=== PATIENT | female | born 1955 | race Caucasian/White ===

== ENCOUNTER → 2018-01-02 13:40 | Outpatient (CLI) | payer OTHER, SELFPAY ==
[2018-01-02 14:32] LABS: Basophils % 0.6 % (0.1-2.0); Eosinophils # 0.1 K/mm3 (0.0-0.4); Eosinophils % 0.9 % (0.1-12.0); Hematocrit 37.7 % (37.0-47.0); Lymphocytes # 2.1 K/mm3 (0.7-4.5); Lymphocytes % 35.1 K/mm3 (10-50); Mean Corpuscular HGB Conc 31.7 g/dL (31.8-35.4); Mean Corpuscular Hemoglobin 30.4 pg (27.0-31.2); Mean Corpuscular Volume 95.8 fl (81-99); Monocytes # 0.4 K/mm3 (0.1-1.0); Monocytes % 6.1 % (1.7-9.3); Neutrophils # 3.4 K/mm3 (1.8-7.8); Neutrophils % 57.4 % (37.0-80.0); Platelet Count 219 K/mm3 (142-424); Red Blood Count 3.94 M/mm3 (4.20-5.40); Red Cell Distribution Width 13.4 % (11.5-17.5); White Blood Count 5.8 K/mm3 (4.8-10.8)
[2018-01-02 14:59] LABS: Hemoglobin A1C 5.8 % (0.0-7.0)
[2018-01-02 15:07] LABS: Alanine Aminotransferase 23 U/L (12-78); Albumin Level 3.9 gm/dL (3.4-5.0); Albumin/Globulin Ratio 1.3 (1.1-1.8); Alkaline Phosphatase 58 U/L (46-116); Anion Gap 10.1 mEq/L (5-15); Aspartate Amino Transferase 20 U/L (15-37); Bilirubin,Total 0.4 mg/dL (0.2-1.0); Blood Urea Nitrogen 20 mg/dL (7-18); Carbon Dioxide 28 mmol/L (21.0-32.0); Chloride 106 mmol/L (98-107); Chol/HDL Ratio 3.2 (1-3.5); Cholesterol 249 mg/dL (140-200); Creatinine,Serum 1.09 mg/dL (0.55-1.02); Estimated Glomerular Filt Rate 51 ml/min (>60); GFR (African American) 62 ML/MIN (>60); Globulin 3.1 gm/dl (1.3-3.2); Glucose 119 mg/dL (74-106); HDL Cholesterol 78 mg/dL (29-89); LDL Cholesterol 128 mg/dL (0-130); Potassium 4.1 mmoL/L (3.5-5.1); Sodium 140 mmol/L (136-145); Thyroid Stimulating Hormone 3.04 uIU/ml (0.358-3.740); Triglycerides 214 mg/dL (30-200); VLDL Cholesterol 43 mg/dL (0-40)
[2018-01-02 15:18] LABS: C-Reactive Protein < 0.2 mg/L (0.0-0.9)
[2018-01-02 15:33] LABS: Erythrocyte Sedimentation Rate 14 mm/hr (0-30)
[2018-01-03 08:22] LABS: RA Latex Turbid. <10.0 IU/mL (0.0-13.9)
[2018-01-03 18:07] LABS: Vitamin D 25 Hydroxy 14.2 ng/mL (30.0-100.0)
[2018-01-05 14:25] LABS: Anti-Jo-1 <0.2 AI (0.0-0.9); Anti-Smith Antibody <0.2 AI (0.0-0.9); Antichromatin Antibodies <0.2 AI (0.0-0.9); Antiscleroderma-70 Antibodies <0.2 AI (0.0-0.9); RNP Antibodies <0.2 AI (0.0-0.9); Sjogren's Anti-SS-A <0.2 AI (0.0-0.9); Sjogren's Anti-SS-B <0.2 AI (0.0-0.9)
[2018-01-08 06:55] LABS: Anti-Centromere B Antibodies <0.2 AI (0.0-0.9); Anti-Cyclic Citrullinated Pept 7 units (0-19); Anti-DNA (DS) Ab Qn <1 IU/mL (0-9)
== END ==
PROVIDERS: Visit Provider Nurse Practitioner Family
DX: M25.50 Pain in unspecified joint (principal); I10 Essential (primary) hypertension; R53.83 Other fatigue
CPT/HCPCS: 36415; 80053; 80061; 82652; 83036; 84439; 84443; 85025; 85651; 86140; 86200; 86225; 86235; 86431

== ENCOUNTER → 2018-01-20 06:43 | Outpatient (CLI) | payer OTHER, SELFPAY ==
--- NOTE | 2018-01-20 06:44 | NM_ITS ---
History and Indications: Hypertension, hyperlipidemia, family history and abnormal EKG Procedure: Patient received a 0.4 mg of Lexiscan, resting heart rate was 68 bpm, resting blood pressure 124/71, with Lexiscan maximum heart rate achieved was 102 bpm, which is less than 85% of the maximum predicted heart rate and a blood pressure was 108/65. With Lexiscan patient complained of stomach discomfort Electrocardiogram: Resting electrocardiogram showed sinus rhythm nonspecific ST-T changes, with Lexiscan there is less than 1.[address] segment depression noted from the baseline EKG. The EKG portion of the Lexiscan Myoview is nondiagnostic. Cardiac stress and resting SPECT images: Cardiac stress and rest SPECT images were obtained using technetium 99 Myoview 30.2 mCi at stress and 10.7 mCi, gated SPECT further analysis of segmental wall motion and calculation of the ejection fraction also done. Cardiac stress and resting SPECT images show uniform myocardial activity without any segmental perfusion abnormality, computer derived ejection fraction is 56 percent with no obvious regional wall motion abnormality, right ventricle is normal size and contractility. Conclusion: 1. The EKG portion of the Lexiscan Myoview is nondiagnostic. 2. No obvious scintigraphic evidence of reversible ischemia seen, computer derived ejection fraction is 56% with no obvious regional wall motion abnormality, right ventricle is normal size and contractility. 3. Normal Lexiscan Myoview study.
--- NOTE | 2018-01-20 06:52 | CA_ITS ---
PROCEDURE: 2-D M-mode and color Doppler study INDICATIONS FOR THE TEST: Chest pain COPD Heart Murmur Tobacco Smoking Palpitations Fatigue Syncope Edema Hypertension+Diabetes Mellitus Rheumatic Fever SOB MITCHELL Obesity+Hyperlipidemia+ Family History HD Additional History CVA, HX OF SUBSTANCE ABUSE CLEAN FOR 3 YRS, ETOH ABUSE, + BUBBLE STUDY PATIENT INFORMATION HEIGHT:63 WEIGHT:192 GENDER: Female B/P:108/62 2-D/M-MODE INTERPRETATION: 2-D MEASUREMENTS OBSERVED VALUES IN CMS Right Ventricular Dimension (RVDd) 2.3 Interventricular Septum (Thickness)(IVsd) 1.5 Left Ventricular Internal Dimensions(LVIDd) 5.3 Left Ventricular Posterior Wall (Thickness)(LVPWd) 1.2 Aortic Root 3.3 Aortic Cusp Separation 2.2 Left Atrial Dimensions (LAD) 4.8 2D 1. Left atrium is mildly enlarged, left ventricle is normal size, mild concentric left ventricular hypertrophy, visually estimated ejection fraction 55% with no obvious regional wall motion abnormality. 2. The right atrium and right ventricle are mildly enlarged with normal contractility. 3. The aortic valve is minimally thickened and fibrosed. 4. The mitral and tricuspid valve are grossly normal. 5. The pulmonic valve is poorly visualized. 6. No significant pericardial effusion noted. DOPPLER INTERROGATION: Doppler interrogation of the aortic, mitral and tricuspid valvular presence of mild mitral and tricuspid regurgitation, tricuspid regurgitation jet velocity is insufficient for calculation of the right ventricular systolic pressure, grade 1 diastolic dysfunction seen with tissue Doppler evidence of raised left atrial pressure. There is flow across the intra-atrial septum is suggestive of atrial septal defect, agitated saline contrast study identifies right to left shunt. CONCLUSION: 1. Biatrial enlargement, normal left ventricular size, mild concentric left ventricular hypertrophy, visually estimated ejection fraction 55% with no obvious regional wall motion abnormality, grade 1 diastolic dysfunction seen with tissue Doppler evidence of raised left atrial pressure. 2. Mildly enlarged right ventricle with normal contractility. 3. There is flow across the intra-atrial septum, suggestive of possible atrial septal defect, agitated saline contrast study identifies right to left, a transesophageal echocardiogram is recommended for further evaluation.
--- NOTE | 2018-01-20 07:22 | HMH.ITSHM ---
ATORVASTATIN BISOPROLOL FLONASE LORATADINE LOSARTAN OXYBUTYNIN PANTOPRAZOLE VENLAFAXINE
[2018-01-20 10:58] LABS: Anion Gap 8.8 mEq/L (5-15); Blood Urea Nitrogen 17 mg/dL (7-18); Calcium 8.5 mg/dL (8.5-10.1); Carbon Dioxide 32 mmol/L (21.0-32.0); Chloride 102 mmol/L (98-107); Creatinine,Serum 1.09 mg/dL (0.55-1.02); Estimated Glomerular Filt Rate 51 ml/min (>60); GFR (African American) 62 ML/MIN (>60); Glucose 131 mg/dL (74-106); Potassium 3.8 mmoL/L (3.5-5.1); Sodium 139 mmol/L (136-145)
== END ==
PROVIDERS: PCP Emergency Medicine; Visit Provider Internal Medicine Cardiovascular Disease
DX: I10 Essential (primary) hypertension (principal); I69.30 Unspecified sequelae of cerebral infarction; Z87.898 Personal history of other specified conditions
CPT/HCPCS: 36415; 78452; 80048; 93017; 93306; A9502; J2785

== ENCOUNTER → 2018-01-20 10:13 | Outpatient (CLI) | payer OTHER, SELFPAY | PROVIDERS: PCP Emergency Medicine; Visit Provider Internal Medicine Cardiovascular Disease | DX: I10 Essential (primary) hypertension (principal); I69.30 Unspecified sequelae of cerebral infarction; Z87.898 Personal history of other specified conditions | CPT/HCPCS: 36415; 80048 ==

== ENCOUNTER → 2018-02-13 15:07 | Outpatient (CLI) | payer OTHER, SELFPAY | PROVIDERS: Visit Provider Nurse Practitioner Family | DX: R10.9 Unspecified abdominal pain (principal); M54.6 Pain in thoracic spine | CPT/HCPCS: 87086; 87088; 87186 ==

== ENCOUNTER → 2018-07-13 19:44 | Outpatient (CLI) | payer OTHER, SELFPAY | PROVIDERS: PCP Nurse Practitioner Family; Visit Provider Internal Medicine Cardiovascular Disease | DX: G47.33 Obstructive sleep apnea (adult) (pediatric) (principal); R40.0 Somnolence; R06.83 Snoring; I10 Essential (primary) hypertension | CPT/HCPCS: 95810 ==

== ENCOUNTER → 2018-09-11 14:23 | Outpatient (CLI) | payer OTHER, SELFPAY | PROVIDERS: PCP Nurse Practitioner Family; Visit Provider Surgery | DX: Z12.11 Encounter for screening for malignant neoplasm of colon (principal) | CPT/HCPCS: 93005 ==

== ENCOUNTER → 2018-09-22 08:34 | Outpatient (CLI) | payer OTHER, SELFPAY ==
--- NOTE | 2018-09-22 08:35 | MM_ITS ---
MM Dig screening mamm BI w/CAD CAD Screening COMPARISON: Digital outside mammograms with CAD 06/16/2017 INDICATION: There is a history of breast cancer patient maternal aunt diagnosed at age 72 TECHNIQUE: Standard CC and MLO images were obtained. R2 CAD reviewed. FINDINGS: The breasts are composed primarily of fat with minimal scattered fibroglandular densities in each breast. There is asymmetric glandular tissue upper outer quadrant right breast which is stable and unchanged from previous exam. There is a mole marker left breast. There is no suspicious lesion and there are no suspicious microcalcifications. IMPRESSION: Fatty type breast parenchyma with no suspicious lesion seen BI-RADS Category: 2 Benign Finding(s) RECOMMENDED FOLLOW-UP: 1YR - 1 YEAR FOLLOW-UP (A letter has been sent to the patient regarding results of the study.)
== END ==
PROVIDERS: PCP Nurse Practitioner Family; Visit Provider Nurse Practitioner Family
DX: Z12.31 Encounter for screening mammogram for malignant neoplasm of breast (principal)
CPT/HCPCS: 77067

== ENCOUNTER → 2019-04-23 12:07 | Outpatient (CLI) | payer OTHER, SELFPAY ==
--- NOTE | 2019-04-23 12:12 | XR_ITS ---
PROCEDURE: XR LUMBAR SPINE 2-3V CLINICAL INDICATION: pain Low back pain radiating down the right leg COMPARISON: No exams were available for comparison FINDINGS: There is normal alignment. No fracture or dislocation evident. Minimal endplate hypertrophic changes are present at L2-L3 and L4. The disc spaces are well preserved. Mild facet arthritic changes are present L5-S1 IMPRESSION: Mild degenerative changes as described above Dictated by: Keshawn Leavitt MD 04/23/2019 12:27 Electronically signed by Keshawn Leavitt MD in [place] 04/23/2019 12:27
== END ==
PROVIDERS: PCP Nurse Practitioner Family; Visit Provider Nurse Practitioner Family
DX: M54.31 Sciatica, right side (principal); M54.5 Low back pain
CPT/HCPCS: 72100

== ENCOUNTER → 2019-05-03 11:14 | Outpatient (POV) | payer OTHER, SELFPAY | PROVIDERS: Visit Provider Specialist | DX: M79.641 Pain in right hand (principal); R20.0 Anesthesia of skin; R20.2 Paresthesia of skin | CPT/HCPCS: 95886; 95908 ==

== ENCOUNTER → 2020-01-11 15:13 | Outpatient (CLI) | payer MEDICAID, SELFPAY ==
--- NOTE | 2020-01-11 15:13 | US_ITS ---
PROCEDURE: US TRANSVAGINAL CLINICAL INDICATION: US T/V-post menopausal bleeding Postmenopausal bleeding COMPARISON: No exams were available for comparison FINDINGS: UTERUS: 8cm x 5cmx 4cm with a combined endometrial thickness of 18.1mm LEFT OVARY: [id number] with a volume of 3ml. RIGHT OVARY: [id number] with a volume of 1.3ml. There is moderate thickening of the endometrium with some small cystic areas within the area of endometrial thickness.. In addition, there is a 3.8 x 2.9 by 4.2 cm area of decreased echogenicity with somewhat irregular margins within the body of the uterus posteriorly and inferiorly consistent with a fibroid. The ovaries have an unremarkable appearance. No cul-de-sac fluid evident. IMPRESSION: 1. Moderate to severe thickening of the endometrium. Endometrial carcinoma is a consideration. Differential includes hyperplasia of the endometrium or endometrial polyp. [employer] consult suggested. 2. Probable uterine fibroid at 4 cm Dictated b Keshawn Leavitt MD 01/12/2020 09:42 Keshawn Leavitt MD in [place] 01/12/2020 09:42
== END ==
PROVIDERS: PCP Nurse Practitioner Family; Visit Provider Obstetrics & Gynecology
DX: N95.0 Postmenopausal bleeding (principal)
CPT/HCPCS: 76830

== ENCOUNTER → 2020-01-13 11:02 | Outpatient (CLI) | payer MEDICAID, SELFPAY ==
[2020-01-13 11:35] LABS: Basophils # 0.1 K/mm3 (0-0.2); Basophils % 0.6 % (0.1-2.0); Eosinophils # 0.1 K/mm3 (0.0-0.4); Eosinophils % 1.1 % (0.1-12.0); Hematocrit 39.3 % (37.0-47.0); Hemoglobin 12.6 g/dL (12.2-16.2); Lymphocytes # 2.3 K/mm3 (0.7-4.5); Lymphocytes % 27.3 % (10-50); Mean Corpuscular HGB Conc 32.1 g/dL (31.8-35.4); Mean Corpuscular Hemoglobin 30.5 pg (27.0-31.2); Mean Corpuscular Volume 94.8 fl (81-99); Monocytes # 0.4 K/mm3 (0.1-1.0); Monocytes % 4.3 % (1.7-9.3); Neutrophils # 5.6 K/mm3 (1.8-7.8); Neutrophils % 66.6 % (37.0-80.0); Platelet Count 262 K/mm3 (142-424); Red Blood Count 4.14 M/mm3 (4.20-5.40); Red Cell Distribution Width 13.4 % (11.5-17.5); White Blood Count 8.4 K/mm3 (4.8-10.8)
[2020-01-13 12:04] LABS: Chloride 103 mmol/L (98-107); Potassium 4.9 mmoL/L (3.5-5.1); Sodium 141 mmol/L (136-145)
[2020-01-13 12:05] LABS: Alanine Aminotransferase 14 U/L (12-78); Albumin Level 4.5 g/dl (3.5-5.0); Alkaline Phosphatase 52 U/L (38-126); Aspartate Amino Transferase 26 U/L (14-36); Bilirubin,Indirect 0.4 mg/dL (0.0-0.9); Bilirubin,Total 0.4 mg/dl (0.2-1.3); Bilirubin,Unconjugated 0.4 mg/dL (0.0-1.1); Cholesterol 191 mg/dl (140-200); Total Protein,Serum 7.3 g/dl (6.3-8.2); Triglycerides 243 mg/dl (30-150); VLDL Cholesterol 49 mg/dL (0-40)
[2020-01-13 12:06] LABS: Chol/HDL Ratio 2.4 (1-3.5); HDL Cholesterol 79 mg/dl (40-60)
[2020-01-13 12:07] LABS: Alanine Aminotransferase 13 U/L (12-78); Albumin Level 4.6 g/dl (3.5-5.0); Albumin/Globulin Ratio 1.7 (1.1-1.8); Alkaline Phosphatase 53 U/L (38-126); Anion Gap 13.9 mEq/L (5-15); Aspartate Amino Transferase 26 U/L (14-36); Bilirubin,Total 0.5 mg/dl (0.2-1.3); Blood Urea Nitrogen 28 mg/dl (7-17); Carbon Dioxide 29 mmol/L (22.0-30.0); Estimated Glomerular Filt Rate 30 ml/min (>60); GFR (African American) 37 ML/MIN (>60); Globulin 2.7 g/dL (1.3-3.2); Total Protein,Serum 7.3 g/dl (6.3-8.2)
[2020-01-13 12:08] LABS: Calcium 9.9 mg/dl (8.4-10.2); Glucose 107 mg/dl (74-100)
[2020-01-13 12:17] LABS: Direct LDL Cholesterol 90.15 mg/dL (100-129)
== END ==
PROVIDERS: Obstetrics & Gynecology; Visit Provider Internal Medicine Cardiovascular Disease
DX: E78.5 Hyperlipidemia, unspecified (principal); F10.11 Alcohol abuse, in remission; F19.11 Other psychoactive substance abuse, in remission; I10 Essential (primary) hypertension; R94.31 Abnormal electrocardiogram [ECG] [EKG]
CPT/HCPCS: 36415; 80053; 80061; 80076; 85025

== ENCOUNTER 2020-01-21 07:05 | Day surgery (SDC) | payer MEDICAID, SELFPAY ==
[2020-01-19 09:32] VITALS: BMI 32.8
[2020-01-21] VITALS (13 sets, daily range): BP systolic 100–132; BP diastolic 47–87; PULSE 51–74; RESP 13–20; TEMP 36.2–38; O2SAT 94–99
--- NOTE | 2020-01-21 07:14 | XR_ITS ---
PROCEDURE: XR CHEST 2V CLINICAL HISTORY: preop COMPARISON: No exams were available for comparison FINDINGS: The cardiomediastinal silhouette and pulmonary vascularity are within normal limits. The lungs are clear without infiltrates, suspicious nodules, or pleural effusions. There are partially calcified hilar nodes bilaterally. No acute bony abnormalities. There are mild degenerate changes midthoracic spine. IMPRESSION: No acute findings. Dictated by: Dr. Galileo Friedman MD 01/21/2020 08:25 Dr. Galileo Friedman MD in 01/21/2020 08:25
--- NOTE | 2020-01-21 09:45 | HMH.ANESCL ---
[facility] Anesthesia Checklist - Patient Identification Patient Identification: Arm Band, Verbal (Name & ) - Structural Data Admitted From: Home Planned Operative Procedure/s: Hysteroscopy, D&C, Myosure Consent for Planned Operative Procedure(s) Verified: Yes Verified Documents: Surgical Consent, History and Physical - Chart Verification Results Verified: CBC, BMP, Chest Xray - Additional verifications Anesthesia Reactions: No Hx Blood Transfusions: No Blood Transfusion Reaction: No - Airway Assessment C-Spine Mobility Assessed: Yes (MP 2, TMD 3, ) TMJ Mobility Assessed: Yes Dentition: Poor Dentition (Missing teeth) - Neurological Assessment Level of Consciousness: Awake, Alert, Appropriate, Follows Commands Hx Seizures: No Numbness or tingling in extremities: No - Anesthesia Plan Anesthesia Risk discussed: Yes Anesthesia Plan: Verified ASA Class: III Anesthesia Type: General (with LMA) [facility] History I have reviewed the patient's past medical history: Yes Medical History: Reports:: Anxiety, Cerebrovascular Accident (Left sided weakness), Depression, Gastroesophageal Reflux Disease(GERD), Hyperlipidemia, Hypertension, Renal Insufficiency Denies:: Cancer, Diabetes Mellitus Type 1, Diabetes Mellitus Type 2, Internal Pacemaker, Lung Disease, MRSA, Seizures *Have you ever received a pneumonia vaccine?: No *Have you received a flu vaccine this season?: No Other Medical History: Denies: Blood Transfusion Reaction Comment:: obesity, FRANSISCO Anesthesia experience/problems:: None Laterality Cases: Bilateral: Tonsillectomy Other Surgeries: Yes: Cholecystectomy, Colonoscopy, Tubal Ligation, Other ([place] hole). No: Pacemaker Amputation: No Fractures: No - *Social History Last grade of school completed: High school graduate Smoking Status: Never smoker Alcohol Intake: current Alcohol Intake Frequency:: 0-2 drinks per day Substance Use Type: crack/cocaine *Occupational Status:: retired, disabled Housing: apartment *Travel in the last 8 weeks: None - Psychiatric History Pschychiatric History:: Reports:: Anxiety, Depression Family Hx:: Hypertension, Heart Attack, Stroke
[2020-01-21 09:59] LABS: Coronavirus 19 IgG Antibody Negative (Negative); Coronavirus 19 IgM Antibody Negative (Negative)
--- NOTE | 2020-01-21 10:04 | P.PN_ITS ---
[facility] Anesthesia Record Part I Intake, IV Amount: 900 Estimated blood loss (mL): 5 Urine output (mL): 300 Blood Products used (#): none Blood Pressure: 127/68 SaO2: 96 Pulse Rate: 58 Respiratory Rate: 16 Temperature: 97.2 F Patient is:: Awake, Stable Stable to PACU at:: 10:00
--- NOTE | 2020-01-21 10:15 | P.OP_ITS ---
Date of procedure: 01/21/20 Pre-op Diagnosis:: 1. Post-menopausal bleeding 2. Thickened endometrium 3. Uterine fibroid Post-op Diagnosis:: 1. Post-menopausal bleeding 2. Thickened endometrium 3. Uterine fibroid 4. Endometrial mass x 4 Procedure performed:: D&C Hysteroscopy with Myosure excision of endometrial masses Surgeon:: Eli Aguiar MD PHOTONICS TECHNICIAN:: Joao Frye Anesthesia: GETA Estimated blood loss (mL): 5 Operative findings:: 4 large endometrial masses Operative note:: The patient was taken to the OR and general anesthesia administered without difficulty. She was prepped/draped in lithotomy position. The cervix was dilated and hysteroscopic evaluation performed. 4 large endometrial masses were visualized within the endometrial cavity, extending from both the anterior and posterior uterine landrum. The Myosure was used to excise these lesions and to sample endometrial tissue throughout the cavity. Once this was completed, all instruments were removed from her uterus and vagina. She was taken out of lithotomy position, awakened from anesthesia and taken to the PACU in stable condition. All sponge, needle & instrument counts correct. EBL 5cc. Condition: stable Disposition: PACU Specimens:: endometrial masses Complications:: none
--- NOTE | 2020-01-21 13:23 | P.PN_ITS ---
[facility] Anesthesia Record Part II Discharge Time: 10:30 [facility] nurse assessment reviewed?: Yes Patient Condition:: Good Anesthesia Complications:: None Swallowing reflex intact?: Yes Cyanosis?: No Blood Pressure: 118/47 Pulse Rate: 60 Temperature: 97.9 F Mental Status: Alert & Oriented Pain level:: 0 Nausea and/or vomitting:: None Intake, IV Amount: 1,000
== END 2020-01-21 11:36 | disposition home or self-care (01) ==
LOC: OR 07:06
PROVIDERS: PCP Emergency Medicine; Visit Provider Obstetrics & Gynecology
PROC: (CPT 58563; principal; 2020-01-21 08:45)
DX: N95.0 Postmenopausal bleeding (principal); D25.9 Leiomyoma of uterus, unspecified; R93.89 Abnormal findings on diagnostic imaging of other specified body structures; N85.8 Other specified noninflammatory disorders of uterus; F41.9 Anxiety disorder, unspecified; I63.89 Other cerebral infarction; I10 Essential (primary) hypertension; F32.9 Major depressive disorder, single episode, unspecified; K21.9 Gastro-esophageal reflux disease without esophagitis; E78.5 Hyperlipidemia, unspecified; N28.9 Disorder of kidney and ureter, unspecified; Z90.89 Acquired absence of other organs
CPT/HCPCS: 58563; 71046; 86328; 96374; J2405

== ENCOUNTER 2024-03-17 10:59 | Outpatient (CLI) | payer MEDICARE, SELFPAY ==
--- NOTE | 2024-03-17 11:13 | CT_ITS ---
FINAL REPORT CLINICAL HISTORY: nodule right clavicle , marked with bb FINDINGS: CT RIGHT CLAVICLE WITHOUT CONTRAST TECHNIQUE: Axial and reformatted sagittal and coronal images were obtained of the . This study was performed with techniques to keep radiation doses as low as reasonably achievable, (ALARA). Individualized dose reduction techniques using automated exposure control or adjustment of mA and/or kV according to the patient's size were employed. FINDINGS: A skin marker was placed at the site of the clinical abnormality. There is no acute fracture. There is marked asymmetric hypertrophic changes of the right sternoclavicular joint. Prominent osteophytes are present. There is overlying soft tissue thickening. There is anterior subluxation of the clavicular head relative to the sternum. IMPRESSION: Subluxation and hypertrophic changes of the right sternoclavicular joint consistent with osteoarthritis. Correlate with any clinical history of remote trauma. Reviewed, Interpreted and Dictated by Kervin Aguayo MD Transcribed by Billie Rodríguez Authenticated and [facility]
== END 2024-03-17 23:59 | disposition home or self-care (01) ==
LOC: RAD 11:05
PROVIDERS: PCP Nurse Practitioner; Visit Provider Nurse Practitioner
DX: R22.31 Localized swelling, mass and lump, right upper limb (principal)
CPT/HCPCS: 71250